=== PATIENT | female | born 1990 | race Caucasian/White ===

== ENCOUNTER 2022-04-03 07:04 | Emergency (ER) | payer BC, SELFPAY ==
[2022-04-03 07:14] VITALS: BP 116/84; PULSE 93; RESP 14; TEMP 36.7; O2SAT 99; BMI 29.2
[2022-04-03 07:17] VITALS: BP 124/76; PULSE 83; RESP 18; TEMP 36.7; O2SAT 100
[2022-04-03 07:47] VITALS: BP 122/67; PULSE 83; RESP 18; TEMP 36.7; O2SAT 100
--- NOTE | 2022-04-03 07:52 | W.ED.NAVMDI ---
HPI - Nausea/Vomiting/Diarrhea General: Chief complaint: Nausea/Vomiting/Diarrhea Stated complaint: throat pain Time Seen by Provider: 04/03/22 07:34 Source: patient Mode of arrival: ambulatory Limitations: no limitations History of Present Illness: 29-year-old female presents with complaint of sore throat. She was seen 2 to 3 days ago at another facility was diagnosed with strep and started on amoxicillin she still complains sore throat difficulty swallowing with some nausea and vomiting. No rash. She has previously had a tonsillectomy. MD elicited complaint: nausea and vomiting Onset (ago): day(s) Associated nausea: Yes Associated abdominal pain: No Location of pain: Other (Throat) Severity: moderate Exacerbating factors: eating Relieving factors: none Associated symtoms: Reports headache(s), anorexia, malaise, nausea and weakness; Denies altered mental status, anxiety, bloating, change in vision, chest pain, cough, diaphoresis, decreased urine output, dizziness, dysuria, epistaxis, fatigue, fecal incontinence, fevers/chills, myalgias, numbness, palpitations, rash, short of breath, syncope, tenesmus or tinnitus Treatment prior to arrival: other (Amoxicillin x3 days) Review of Systems Const: Reports: malaise; Denies: fever(s), chills, fatigue or diaphoresis Eyes: Denies: change in vision ENMT: Denies: tinnitus or epistaxis Card: Denies: chest pain, palpitations or syncope Resp: Denies: dyspnea, productive cough or non-productive cough GI: Reports: nausea; Denies: bloating or fecal incontinence : Denies: dysuria Skin/Breast: Denies: rash or pruritus Neuro: Reports: headache(s); Denies: dizziness Psych: Denies: anxiety PFS ED PFSH: Medical History (Updated 04/03/22 @ 09:07 by Tyrel Hernández DO) No significant past medical history Surgical History (Updated 04/03/22 @ 09:07 by Tyrel Hernández DO) History of tonsillectomy and adenoidectomy Hx of appendectomy Social History (Updated 04/03/22 @ 08:17 by Tyrel Hernández DO) Smoking and tobacco status: never smoked Physical Exam Const: COMMON NORMALS: no acute distress EXAM LIMITATIONS: no altered mental status GENERAL APPEARANCE: cooperative and comfortable ORIENTATION/CONSCIOUSNESS: Yes awake, Yes oriented to person, Yes oriented to place and Yes oriented to time HENMT: COMMON NORMALS: normocephalic, atraumatic, hearing grossly normal bilaterally, external ears normal, EAC's normal, TM's normal bilaterally, Normal nasal mucous membranes and turbinates present and moist oral mucous membranes HEAD & SCALP: normocephalic and atraumatic NOSE: Normal nasal mucous membranes and turbinates present EXTERNAL EAR: Yes external ears normal EXTERNAL AUDITORY CANAL: EAC's normal TYMPANIC MEMBRANE: TM's normal bilaterally OTHER: Posterior pharyngeal wall in the range of tonsillar fossa there is some mild exudate mild erythema Neck/C-Spine: COMMON NORMALS: full ROM, supple and no JVD Lymph: LYMPHATIC: no lymphedema noted and lymphadenopathy submandibular Resp: COMMON NORMALS: normal respiratory effort, No retractions, No use of accessory muscles and clear to auscultation bilaterally AUSCULTATION: clear to auscultation bilaterally Cardio: COMMON NORMALS: no JVD, regular rate, regular rhythm and No murmurs present (Cardio) RATE: regular rate RHYTHM: regular rhythm GI: COMMON NORMALS: Soft to palpation and No hepatosplenomegaly present AUSCULTATION: Yes normoactive bowel sounds PALPATION: Yes Soft to palpation, No Tenderness to palpation present (GI), No Guarding due to palpation present (GI) and Yes No hepatosplenomegaly present Extremity: COMMON NORMALS: normal to inspection, capillary refill normal, no clubbing, cyanosis or edema, no calf tenderness and no pedal edema Neuro: SENSORIUM/ORIENTATION: Yes oriented to person, Yes oriented to place and Yes oriented to time Skin: COMMON NORMALS: no rashes or lesions noted GENERAL SKIN EXAM: no rashes or lesions noted Course Vital Signs: Vital signs: Vital Signs Temperature 98.1 F 04/03/22 08:17 Pulse Rate 85 04/03/22 08:17 Respiratory Rate 18 04/03/22 08:30 Blood Pressure 108/75 04/03/22 08:30 Pulse Oximetry 100 04/03/22 08:30 MDM - Nausea/Vomiting/Diarrhea Medical Decision Making Strep and mono negative. Advised her to complete the antibiotics that were previously prescribed. Start prednisone taper tomorrow also gave anti-inflammatories clear liquid diet advance as tolerated Medical Records I reviewed the patient's medical records. Lab Data I reviewed the patient's lab results. : 04/03/22 08:13 04/03/22 08:13 Laboratory Results WBC 10.5 10^3/uL (4.0-10.0) H 04/03/22 08:13 RBC 4.67 10^6/uL (4.1-5.3) 04/03/22 08:13 Hgb 13.9 g/dL (11.5-15.3) 04/03/22 08:13 Hct 41.1 % (37.0-47.0) 04/03/22 08:13 MCV 88.0 fl (81-99) 04/03/22 08:13 MCH 29.8 pg (28.0-34.0) 04/03/22 08:13 MCHC 33.8 g/dL (30.0-36.0) 04/03/22 08:13 RDW 13.1 % (12.1-15.1) 04/03/22 08:13 Plt Count 204 10^3/cmm (130-400) 04/03/22 08:13 MPV 9.8 fL (7.4-10.4) 04/03/22 08:13 Neut % (Auto) 81.2 % 04/03/22 08:13 Lymph % (Auto) 8.9 % 04/03/22 08:13 [place] % (Auto) 8.5 % 04/03/22 08:13 Eos % (Auto) 0.5 % 04/03/22 08:13 Baso % (Auto) 0.2 % 04/03/22 08:13 Neut # (Auto) 8.54 10^3/uL (1.8-7.7) H 04/03/22 08:13 Lymph # (Auto) 0.9 10^3/uL (0.8-4.8) 04/03/22 08:13 [place] # (Auto) 0.9 10^3/uL (0.2-0.9) 04/03/22 08:13 Eos # (Auto) 0.1 10^3/uL (0.0-0.8) 04/03/22 08:13 Baso # (Auto) 0.0 10^3/uL (0.0-0.1) 04/03/22 08:13 Nucleated RBC % (auto) 0 % 04/03/22 08:13 Nucleated RBCs # 0.0 /100WBC 04/03/22 08:13 Sodium 138 mmol/L (136-145) 04/03/22 08:13 Potassium 3.6 mmol/L (3.5-5.1) 04/03/22 08:13 Chloride 100 mmol/L (98-107) 04/03/22 08:13 Carbon Dioxide 26 mmol/L (22-29) 04/03/22 08:13 Anion Gap 15.6 (5-19) 04/03/22 08:13 BUN 11 mg/dL (6-20) 04/03/22 08:13 Creatinine 0.8 mg/dL (0.5-0.9) 04/03/22 08:13 GFR Calculation 83.1 mL/min (90-130) L 04/03/22 08:13 Glucose 119 mg/dL (65-115) H 04/03/22 08:13 Calculated Osmolality 287 mOsm/kg (285-295) 04/03/22 08:13 Calcium 9.4 mg/dL (8.5-10.5) 04/03/22 08:13 Total Bilirubin 0.7 mg/dL (0.15-1.2) 04/03/22 08:13 AST 13 U/L (0-32) 04/03/22 08:13 ALT 15 U/L (0-33) 04/03/22 08:13 Alkaline Phosphatase 72 IU/L (35-105) 04/03/22 08:13 Total Protein 7.8 g/dL (6.6-8.7) 04/03/22 08:13 Albumin 4.6 g/dL (3.5-5.2) 04/03/22 08:13 Globulin 3.2 g/dL (1.3-4.6) 04/03/22 08:13 Monoscreen Negative (Negative) 04/03/22 08:13 Group A Strep Rapid Negative (Negative) 04/03/22 08:30 Discharge Plan Discharge Patient Disposition: Home Clinical Impression: Pharyngitis, History of tonsillectomy and adenoidectomy Condition: Stable Prescriptions: New ondansetron HCl 4 mg tablet 4 mg PO Q6H PRN (Reason: nausea and vomiting) Qty: 20 0RF prednisone 20 mg tablet 20 mg PO TID Qty: 15 0RF Rx Instructions: 1 p.o. 3 times daily x3 days, 1 p.o. twice daily x2 days, 1 p.o. daily x2 days Discharge Orders: Discharge ED (Routine); Ordered 04/03/22 Ordered By: Tyrel Hernández Patient Instructions: Opioid Safety Activity Restrictions/Additional Instructions: Complete entire course of the previously prescribed amoxicillin. Start steroid taper tomorrow. Coding Level of Care Code ED [employer] Att[employer] for [facility] Fwd Exam Comprehensive
[2022-04-03 08:17] VITALS: BP 118/77; PULSE 85; RESP 18; TEMP 36.7; O2SAT 100
[2022-04-03 08:18] LABS: Basophils % 0.2 %; Eosinophils # 0.1 10^3/uL (0.0-0.8); Eosinophils % 0.5 %; Hematocrit 41.1 % (37.0-47.0); Hemoglobin 13.9 g/dL (11.5-15.3); Lymphocytes # 0.9 10^3/uL (0.8-4.8); Lymphocytes % 8.9 %; Mean Corpuscular HGB Conc 33.8 g/dL (30.0-36.0); Mean Corpuscular Hemoglobin 29.8 pg (28.0-34.0); Mean Platelet Volume 9.8 fL (7.4-10.4); Monocytes # 0.9 10^3/uL (0.2-0.9); Monocytes % 8.5 %; Neutrophils # 8.54 10^3/uL (1.8-7.7); Neutrophils % 81.2 %; Nucleated Red Blood Cells % 0 %; Platelet Count 204 10^3/cmm (130-400); Red Blood Count 4.67 10^6/uL (4.1-5.3); Red Cell Distribution Width 13.1 % (12.1-15.1); White Blood Count 10.5 10^3/uL (4.0-10.0)
[2022-04-03] MEDS: sodium chloride 0.9% 1,000 ML 999 ML IV (08:18)
[2022-04-03] MEDS: ketorolac 30 mg/mL INJ IVP (08:18)
[2022-04-03] MEDS: ondansetron 2 mg/ML SDV 2 mL 4 MG IVP (08:19)
[2022-04-03] MEDS: dexamethasone 10 mg/mL INJ IVP (08:19)
[2022-04-03 08:30] VITALS: BP 108/75; RESP 18; O2SAT 100
[2022-04-03 08:34] LABS: Monoscreen Negative (Negative)
[2022-04-03 08:39] LABS: Alanine Aminotransferase 15 U/L (0-33); Albumin Level 4.6 g/dL (3.5-5.2); Alkaline Phosphatase 72 IU/L (35-105); Anion Gap 15.6 (5-19); Aspartate Amino Transferase 13 U/L (0-32); Blood Urea Nitrogen 11 mg/dL (6-20); Calcium 9.4 mg/dL (8.5-10.5); Carbon Dioxide 26 mmol/L (22-29); Chloride 100 mmol/L (98-107); Globulin 3.2 g/dL (1.3-4.6); Glomerular Filtration Rate 83.1 mL/min (90-130); Glucose 119 mg/dL (65-115); Osmolality Calculated 287 mOsm/kg (285-295); Potassium 3.6 mmol/L (3.5-5.1); Sodium 138 mmol/L (136-145); Total Bilirubin 0.7 mg/dL (0.15-1.2); Total Protein 7.8 g/dL (6.6-8.7)
[2022-04-03 08:52] LABS: Rapid Strep A Test Negative (Negative)
[2022-04-03 09:23] VITALS: BP 108/75; PULSE 85; RESP 18; TEMP 36.8; O2SAT 100
== END 2022-04-03 09:25 | disposition home or self-care (01) ==
PROVIDERS: Emergency Provider Family Medicine
DX: J02.9 Acute pharyngitis, unspecified (principal)
CPT/HCPCS: 80053; 85025; 86308; 87081; 87880; 96361; 96374; 96375; 99284; J1100; J1885; J2405; J7030